=== PATIENT | male | born 1970 | race African-American/Black ===

== ENCOUNTER 2017-12-04 03:25 | Inpatient (IN) ==
[2017-12-04 05:16] LABS: Baso # (Auto) 0.1 th/mm3 (0.0-0.2); Baso % (Auto) 0.3 % (0.0-2.0); Eos # (Auto) 0.1 th/mm3 (0.0-0.4); Eos % (Auto) 0.4 % (0.0-4.0); Hematocrit 42.2 % (39.0-51.0); Hemoglobin 14.6 gm/dL (13.0-17.0); Lymph # (Auto) 2.3 th/mm3 (1.0-4.8); Lymph % (Auto) 13.3 % (9.0-44.0); Mean Corpuscular HGB Conc 34.6 % (32.0-36.0); Mean Corpuscular Hemoglobin 30.7 pg (27.0-34.0); Mean Corpuscular Volume 88.9 fL (80.0-100.0); Mean Platelet Volume 8.2 fL (7.0-11.0); Mono # (Auto) 1.8 th/mm3 (0.0-0.9); Mono % (Auto) 10.6 % (0.0-8.0); Neut % (Auto) 75.4 % (16.0-70.0); Platelet Count 280 th/mm3 (150-450); Red Blood Count 4.75 mil/mm3 (4.50-5.90); Red Cell Distribution Width 13.8 % (11.6-17.2); White Blood Count 17.2 th/mm3 (4.0-11.0)
--- NOTE | 2017-12-04 06:23 | ED ---
HPI General Chief Complaint: Psychiatric Symptoms Stated Complaint: vol psych eval Time Seen by Provider: 12/04/17 04:42 Source: patient Mode of arrival: ambulatory Limitations: no limitations History of Present Illness HPI Narrative: 47-year-old black male presents emergency department on a voluntary basis for psychological evaluation. Patient reports a history of schizophrenia. Patient allegedly has had a recent incarceration and was released. He has been feeling increasingly depressed and having suicidal thoughts. He has not been compliant with his medications. He does drink alcohol on occasion in those drugs. He denies any toxic ingestions. He denies any acute medical complaints. Patient is concerned that he may hurt himself. He does appear to be responding to internal stimuli at times. MD complaint: suicidal ideation and feels depressed Onset (ago): day(s) Duration: constant and getting worse History of same: Yes Relieving factors: medication Exacerbating factors: drug use Context: not taking psychiatric medications Associated psychiatric symptoms: depression and suicidal ideation Associated symptoms: denies other symptoms Treatments prior to arrival: none If self harm: admits thoughts of self harm Related Data Home Medications Medication Instructions Recorded Confirmed Unable to Obtain Home Meds 12/04/17 12/04/17 Allergies Allergy/AdvReac Type Severity Reaction Status Date / Time acetaminophen Allergy Severe DIZZY AND Verified 12/04/17 03:51 HIVES cyclobenzaprine Allergy Severe GI UPSET Verified 12/04/17 03:51 ketorolac Allergy Severe HIVES-DIZZI Verified 12/04/17 03:51 NESS propoxyphene Allergy Severe DIZZY AND Verified 12/04/17 03:51 HIVES tramadol Allergy Severe RASH Verified 12/04/17 03:51 Review of Systems ROS Unobtainable All other systems reviewed negative except as stated in HPI PMFSH Medical History Medical History Medical history unknown (Acute) Surgical history unknown (Acute) Social History Social History Second Hand Smoke Exposure: Yes Smoking Status: Heavy tobacco smoker Tobacco Type: Cigarettes How Often Do You Have a Drink Containing Alcohol: 4 or more times a week Substance Abuse Detail Marijuana: Substance Use Status: Active Crack/Cocaine: Substance Use Status: Active Route Used Substance Abuse: Inhalation Reason for Use: Feels Good and Get High Immunization History Tetanus Immunization: >5 Years Hx Influenza Vaccine This Season: No Exam Narrative Exam Narrative: GENERAL: Well-nourished, well-developed patient. SKIN: Warm and dry. HEAD: Normocephalic and atraumatic. EYES: No scleral icterus. No injection or drainage. ENT: No nasal drainage noted. Mucous membranes pink. Airway patent. NECK: Supple, trachea midline. Moves head freely without obvious discomfort. CARDIOVASCULAR: Regular rate and rhythm without murmurs, gallops, or rubs. RESPIRATORY: Breath sounds equal bilaterally. No accessory muscle use. GASTROINTESTINAL: Abdomen soft, non-tender, nondistended. EXTREMITIES: No cyanosis or edema. BACK: Nontender without obvious deformity. No CVA tenderness. NEURO: Patient is alert and oriented. no sensorimotor deficits. Nonfocal. Normal speech. PSYCH: Patient appears to be responding to some internal stimuli. He admits to auditory hallucinations. Patient is very edgy and appears to be somewhat agitated at times. Course Hospital Course: Patient's laboratory tests are not back at this time. His initial CBC shows a 17,000 white count. His chemistry, alcohol intoxication are still pending. The patient's laboratory tests will be reviewed by the oncjaylyn KING for complete medical clearance. Initial Documented Vital Signs Temperature 98.6 F 12/04/17 03:35 Pulse Rate 108 H 12/04/17 03:35 Respiratory Rate 16 12/04/17 03:35 Blood Pressure 132/75 12/04/17 03:35 Pulse Oximetry 98 12/04/17 03:35 Last Documented Vital Signs Temperature 98.6 F 12/04/17 03:35 Pulse Rate 98 H 12/04/17 05:07 Respiratory Rate 16 12/04/17 03:35 Blood Pressure 152/90 H 12/04/17 06:05 Pulse Oximetry 99 12/04/17 05:07 Sign Out Sign Out Data: Patient Sign Out occurred on 12/04/17 at 09:31. Patient's care was discussed, and care was transferred from FERNANDO Johnson to FERNANDO Del Valle. Sign Out Comment: Case discussed with oncjaylyn KING. Last updated by Angelo Broussard PA at 12/04/17 07:23 Post-Handoff Eval: 47-year-old male presents to the emergency room voluntarily for evaluation of suicidal ideation. Patient has history of schizophrenia and is noncompliant with his medications. CBC shows leukocytosis of 17. CMP is only remarkable for creatinine of 1.39. Valproic acid is subtherapeutic. Patient was seen by a psychiatric nurse practitioner and placed under a Styles act. Patient will be admitted to the psychiatric unit for further evaluation. Medical Decision Making Differential Diagnosis Differential Diagnosis: MDM: High Differential diagnoses: Schizophrenia, schizoaffective disorder, bipolar, anxiety, depression, adjustment reaction, mood disorder NOS, ODD, depressive disorder NOS, dementia, dementia with agitation, psychosis NOS, substance induced mood disorder, DMDD, Asperger syndrome, infection,electrolyte abnormality, malingering. Mental health screening discussed with the patient. Psychiatric screen ordered. Lab Data Result diagrams: 12/04/17 04:50 12/04/17 06:30 Lab Results 12/04/17 12/04/17 Range/Units 04:50 06:30 WBC 17.2 H (4.0-11.0) th/mm3 RBC 4.75 (4.50-5.90) mil/mm3 Hgb 14.6 (13.0-17.0) gm/dL Hct 42.2 (39.0-51.0) % MCV 88.9 (80.0-100.0) fL MCH 30.7 (27.0-34.0) pg MCHC 34.6 (32.0-36.0) % RDW 13.8 (11.6-17.2) % Plt Count 280 (150-450) th/mm3 MPV 8.2 (7.0-11.0) fL Neut % (Auto) 75.4 H (16.0-70.0) % Lymph % (Auto) 13.3 (9.0-44.0) % [place] % (Auto) 10.6 H (0.0-8.0) % Eos % (Auto) 0.4 (0.0-4.0) % Baso % (Auto) 0.3 (0.0-2.0) % Neut # (Auto) 13.0 H (1.8-7.7) th/mm3 Lymph # (Auto) 2.3 (1.0-4.8) th/mm3 [place] # (Auto) 1.8 H (0.0-0.9) th/mm3 Eos # (Auto) 0.1 (0.0-0.4) th/mm3 Baso # (Auto) 0.1 (0.0-0.2) th/mm3 WBC Differential . Differential Comment Auto diff final Sodium 141 (136-145) meq/L Potassium 3.6 (3.5-5.1) meq/L Chloride 107 (98-107) meq/L Carbon Dioxide 25.2 (21.0-32.0) meq/L Anion Gap 9 (5-15) meq/L BUN 16 (7-18) mg/dL Creatinine 1.39 H (0.60-1.30) mg/dL Estimated GFR 66 L (>89) mL/min Random Glucose 92 (74-106) mg/dL Calcium 8.6 (8.5-10.1) mg/dL Total Bilirubin 0.6 (0.2-1.0) mg/dL AST 12 L (15-37) U/L ALT 19 (12-78) U/L Alkaline Phosphatase 82 (45-117) U/L Total Protein 7.7 (6.4-8.2) g/dL Albumin 3.4 (3.4-5.0) g/dL TSH 0.584 (0.358-3.740) uIU/mL Valproic Acid Less than 3 L (50-100) mcg/mL Serum Alcohol Less than 3 (0-5) mg/dL Discharge Plan Discharge Disposition Patient Disposition: 30 Still Patient Discharge Condition Condition: Stable Discharge Details Diagnosis: Schizophrenia, Suicidal ideation Physicians Team ED Provider: Stefany Harris ED Midlevel Provider: Cindy Couch Primary Care Provider: UNKNOWN, Attending Provider: Henrry Guillory Discharge Interventions Interventions: Vital Signs Last Done: 12/04/17 06:05 Status ED Status: Admitted Patient
[2017-12-04 07:03] LABS: Alanine Aminotransferase 19 U/L (12-78); Albumin 3.4 g/dL (3.4-5.0); Anion Gap 9 meq/L (5-15); Aspartate Aminotransferase 12 U/L (15-37); Blood Urea Nitrogen 16 mg/dL (7-18); Calcium 8.6 mg/dL (8.5-10.1); Carbon Dioxide 25.2 meq/L (21.0-32.0); Chloride 107 meq/L (98-107); Glomerular Filtration Rate 66 mL/min (>89); Glucose,Random 92 mg/dL (74-106); Potassium 3.6 meq/L (3.5-5.1); Sodium 141 meq/L (136-145)
[2017-12-04 07:14] LABS: Alkaline Phosphatase 82 U/L (45-117); Thyroid Stimulating Hormone 0.584 uIU/mL (0.358-3.740); Total Protein 7.7 g/dL (6.4-8.2)
[2017-12-04] MEDS ORDERED: Aluminum/Magnesium/Simethacone Susp 30 ML UDC PO PRN (11:56)
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
[2017-12-05] MEDS ORDERED: LORazepam 1 MG Tablet PO PRN (11:23)
[2017-12-05] MEDS ORDERED: Chlorpromazine Inj 50 MG/2 ML Ampule IM PRN ×2 (11:23→11:47)
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
[2017-12-05 13:08] LABS: Amphetamine Urine With Conf Neg (Neg); Benzodiazepine Urine With Conf Neg (Neg)
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
[2017-12-05] MEDS: risperiDONE 2 MG ODT PO SCH ×2 (14:25→20:40)
[2017-12-05] MEDS: Divalproex 250 MG ER Tablet PO SCH (20:40)
[2017-12-05 23:19] LABS: Bilirubin,Urine Negative (Negative); Clarity,Urine Clear (Clear); Color,Urine Yellow (Yellw/Straw); Glucose,Urine (UA) Negative (Negative); Hyaline Casts,Urine 1 /lpf (0-3); Leukocyte Esterase,Urine Negative (Negative); Mucus,Urine Few /lpf (Occasional); Nitrite,Urine Negative (Negative); Specific Gravity,Urine 1.023 (1.002-1.035); Squamous Epithelial Cell,Urine <1 /hpf (0-5)
[2017-12-06] MEDS: Divalproex 250 MG ER Tablet PO SCH (08:55)
[2017-12-06] MEDS: risperiDONE 2 MG ODT PO SCH (08:56)
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
== END 2017-12-06 16:00 | disposition home or self-care (01) ==
LOC: NEPD 03:25 → NEDA 11:58 → H270 14:04
PROVIDERS: ADMIT Psychiatry & Neurology Psychiatry; ATTEND Psychiatry & Neurology Psychiatry